=== PATIENT | female | born 1970 | race Caucasian/White ===

== ENCOUNTER → 2016-11-28 | Outpatient (CLI) | payer BC ==
--- NOTE | 2016-11-28 12:27 | REP ---
LEFT CLAVICLE: HISTORY: Pain. COMPARISON: None. FINDINGS: No acute fracture or destructive osseous lesion. Signed by Akhil Steinberg DO 11/28/2016 01:32 P
--- NOTE | 2016-11-28 12:28 | REP ---
LEFT SHOULDER: HISTORY: Pain after trauma. COMPARISON: None. FINDINGS: Three views of the left shoulder were performed. The acromioclavicular and glenohumeral relationships are within normal limits. There is no acute fracture or destructive osseous lesion. Signed by Akhil Steinberg DO 11/28/2016 01:32 P
--- NOTE | 2016-11-28 12:31 | REP ---
CERVICAL SPINE: HISTORY: Neck pain. COMPARISON: None. I have been given no history of trauma whatsoever. FINDINGS: Moderate disc space narrowing is seen at every level, but particularly C4-5 and C5-6. Vertebral body height and alignment is within normal limits. The intervertebral foramina appear ample bilaterally. The facet joints appear to be well aligned bilaterally. IMPRESSION: Chronic changes as described above. The dens cannot be effectively evaluated secondary to the superimposition of osseous structures and/or dentition on all views. Although this plain radiographic evaluation of the cervical spine shows no evidence of a fracture, it should be remembered that CT is much more sensitive than plain radiography of the C-spine in detecting fractures. If this examination was ordered to rule out a fracture, than CT of the cervical spine is recommended. Signed by Akhil Steinberg DO 11/28/2016 01:32 P
== END ==
LOC: M LRY 10:46
PROVIDERS: ATTEND Nurse Practitioner Family
DX: M89.8X1 Other specified disorders of bone, shoulder (principal); S49.92XA Unspecified injury of left shoulder and upper arm, initial encounter; M54.2 Cervicalgia; X58.XXXA Exposure to other specified factors, initial encounter; Y92.9 Unspecified place or not applicable; Y93.9 Activity, unspecified; Y99.9 Unspecified external cause status